=== PATIENT | female | born 2005 | race Hispanic/Latino ===

== ENCOUNTER 2024-09-09 13:17 | Inpatient (IN) | payer OTHER ==
[2024-09-14] MEDS: Lactated Ringer's 1,000 ML IV SCH (21:00)
[2024-09-14] MEDS: Penicillin G Potassium 5 MILL.UNITS VIAL ONE (22:17)
[2024-09-14] MEDS ORDERED: Misoprostol 200 MCG TAB PR PRN (22:47)
[2024-09-14] MEDS ORDERED: Acetaminophen 500 MG TAB PO PRN (22:47)
[2024-09-14] MEDS ORDERED: Lidocaine 1% (PF) 30 ML VIAL SC PRN (22:47)
[2024-09-14] MEDS ORDERED: Diphenoxylate HCl/Atropine Tablet PO PRN (22:47)
[2024-09-14] MEDS ORDERED: hydrALAZINE 20 MG/ML VIAL SLOW IVP PRN (22:47)
[2024-09-14] MEDS ORDERED: Methylergonovine 0.2 MG/ML VIAL IM PRN (22:47)
[2024-09-14] MEDS ORDERED: Promethazine HCl 25 MG/ML VIAL IM PRN (22:47)
[2024-09-14] MEDS ORDERED: Ibuprofen 800 MG TAB PO PRN (22:49)
[2024-09-14] MEDS ORDERED: HYDROcodone/Acetaminophen 5/325 mg Tablet PO PRN (22:49)
[2024-09-14 22:53] VITALS: BMI 26.5
[2024-09-14] MEDS: Misoprostol 100 MCG TAB VAG SCH (23:00)
[2024-09-14] MEDS ORDERED: Oxytocin 30 units/NS 500 ML 500 ML IV SCH ×2 (23:00)
[2024-09-14 23:32] LABS: Hematocrit 36.5 % (34.9-44.5); Hemoglobin 12.8 g/dL (12.0-15.5); Mean Corpuscular HGB CONC 35.1 g/dL (32.0-36.0); Mean Corpuscular Hemoglobin 32.7 pg (27.0-33.0); Mean Corpuscular Volume 93.1 fL (81.6-98.3); Mean Platelet Volume 13.2 fL (7.4-10.4); Platelet Count 198 10x3/uL (150-450); RBC Distribution Width 12.3 % (11.5-14.5); Red Blood Cell (RBC) Count 3.92 10x6/uL (3.90-5.03); White Blood Cell (WBC) Count 10.4 10x3/uL (3.5-10.5)
[2024-09-14 23:42] LABS: Hep B Surf Ag - L&D Non-Reactive S/CO (NonReactive); Syphilis Antibody Nonreactive (Nonreactive); Syphilis Antibody Index 0.06 S/CO (<1.00 Non-Reactive)
[2024-09-15] MEDS ORDERED: Penicillin G Potassium 5 MILL.UNITS in Sodium Chloride 0.9% 100 ML IVPB SCH (01:00)
[2024-09-15] MEDS: Penicillin G 2.5 MILL.units 2.5 MILL.UNITS in Premix 1 BAG IVPB SCH (02:03)
[2024-09-15] MEDS: Oxytocin 30 units/NS 500 ML 500 ML IV SCH (08:10)
[2024-09-15] MEDS ORDERED: Bupivacaine/Epinephrine 0.25% 30 ML VIAL ONE (14:00)
[2024-09-15] MEDS: fentaNYL 50 mcg/mL 1 mL Vial SLOW IVP PRN (15:38)
[2024-09-15] MEDS ORDERED: diphenhydrAMINE 50 MG/ML VIAL IVP PRN (17:12)
[2024-09-15] MEDS ORDERED: Acetaminophen 325 MG TAB PO PRN (17:12)
[2024-09-15] MEDS ORDERED: Naloxone HCl 0.4 mg/ml Vial IVP PRN ×2 (17:12)
[2024-09-15] MEDS ORDERED: ePHEDrine Sulfate 50 MG/10 ML VIAL SLOW IVP PRN (17:12)
[2024-09-15] MEDS ORDERED: Moisturizing Cream (Eucerin) 113 GM JAR TOP PRN (17:12)
[2024-09-15] MEDS ORDERED: Promethazine HCl 25 MG/ML VIAL IM PRN (17:12)
[2024-09-15] MEDS ORDERED: Lactated Ringer's 500 ML IV PRN (17:12)
[2024-09-15] MEDS ORDERED: Communication Order-Pharmacy FS SCH (17:15)
[2024-09-15] MEDS: fentaNYL 2 mcg/Ropivacaine 0.2% Epidural 100 ML CADD EPIDURAL SCH (17:33)
[2024-09-15] MEDS: Labetalol HCl 100 MG TAB PO SCH (18:48)
[2024-09-16] MEDS: Ondansetron PF 4 MG/2 ML Vial IVP PRN ×2 (00:42→06:37)
[2024-09-16] MEDS: fentaNYL/Ropivacaine Epidural 100 ML ONE (04:13)
[2024-09-16] MEDS: Carboprost 250 MCG/ML AMP IM PRN (06:06)
[2024-09-16] MEDS: Tranexamic Acid 1,000 MG/10 ML VIAL IVP PRN (06:16)
[2024-09-16] MEDS: Carboprost 250 MCG/ML AMP ONE (06:21)
[2024-09-16] MEDS: Labetalol HCl 100 MG TAB PO SCH (07:50)
[2024-09-16] MEDS ORDERED: diphenhydrAMINE 25 MG CAP PO PRN (08:23)
[2024-09-16] MEDS ORDERED: Lanolin Ointment 7 GM TUBE TOP PRN (08:23)
[2024-09-16] MEDS ORDERED: Benzocaine-Menthol 82.5 ML CAN TOP PRN (08:23)
[2024-09-16] MEDS ORDERED: Boostrix 0.5 ML (Tdap) VIAL (>/=7 yrs of age) IM ONE (08:23)
[2024-09-16] MEDS ORDERED: Ondansetron PF 4 MG/2 ML Vial IVP PRN (08:23)
[2024-09-16] MEDS ORDERED: hydrALAZINE 20 MG/ML VIAL SLOW IVP PRN (08:23)
[2024-09-16] MEDS ORDERED: Bisacodyl 10 MG SUPP PR PRN (08:23)
[2024-09-16] MEDS ORDERED: Promethazine HCl 25 MG/ML VIAL IM PRN (08:23)
[2024-09-16] MEDS ORDERED: Milk Of Magnesia 30 ML UDCUP PO PRN (08:23)
[2024-09-16] MEDS: HYDROcodone/Acetaminophen 5/325 mg Tablet PO PRN (08:41)
[2024-09-16] MEDS: Ferrous Sulfate 325 MG TAB PO SCH ×2 (09:00→17:56)
[2024-09-16] MEDS: Prenatal Vitamin 1 TAB PO SCH (09:39)
[2024-09-16] MEDS: Docusate 100 MG CAP PO SCH (09:39)
[2024-09-16] MEDS: Misoprostol 100 MCG TAB ONE (13:00)
[2024-09-16] MEDS: Labetalol HCl 200 MG TAB PO SCH (13:27)
[2024-09-16] MEDS: Ibuprofen 800 MG TAB PO SCH (13:27)
[2024-09-18 17:28] VITALS: BP 129/79; TEMP 98.3
== END 2024-09-18 20:00 | disposition home or self-care (01) | DRG 807 ==
LOC: CSHLD 09-14 21:43 → CSHPED 09-16 08:55
PROVIDERS: ADMIT Family Medicine; ATTEND Family Medicine
PROC: 10H07YZ Insertion of Other Device into Products of Conception, Via Natural or Artificial Opening (ICD-10-PCS; 2024-09-15)
PROC: 10907ZC Drainage of Amniotic Fluid, Therapeutic from Products of Conception, Via Natural or Artificial Opening (ICD-10-PCS; 2024-09-15)
PROC: 10E0XZZ Delivery of Products of Conception, External Approach (ICD-10-PCS; principal; 2024-09-16)
PROC: 0KQM0ZZ Repair Perineum Muscle, Open Approach (ICD-10-PCS; 2024-09-16)
DX: O99.824 Streptococcus B carrier state complicating childbirth (principal); Z37.0 Single live birth; O48.0 Post-term pregnancy; Z3A.40 40 weeks gestation of pregnancy; O70.1 Second degree perineal laceration during delivery; O77.0 Labor and delivery complicated by meconium in amniotic fluid
CPT/HCPCS: 36415; 51702; 85027; 86780; 86850; 86900; 86901; 87340; J2405; J2540; J2590; J3010; J3490; J7120